=== PATIENT | female | born 2000 | race Caucasian/White ===

== ENCOUNTER → 2022-10-24 12:23 | Outpatient (CLI) | payer BC, SELFPAY ==
[2022-10-24 18:49] LABS: Alanine Aminotransferase 15 U/L (12-78); Albumin Level 4.4 g/dl (3.5-5.0); Albumin/Globulin Ratio 1.5 (1.1-1.8); Alkaline Phosphatase 76 U/L (38-126); Anion Gap 10.7 mEq/L (5-15); Aspartate Amino Transferase 23 U/L (14-36); Bilirubin,Total 0.6 mg/dl (0.2-1.3); Blood Urea Nitrogen 13 mg/dl (7-17); Calcium 9.2 mg/dl (8.4-10.2); Carbon Dioxide 29 mmol/L (22.0-30.0); Chloride 106 mmol/L (98-107); Estimated Glomerular Filt Rate 107 ml/min (>60); GFR (African American) 129 ML/MIN (>60); Globulin 2.9 g/dL (1.3-3.2); Glucose 79 mg/dl (74-100); Potassium 4.7 mmoL/L (3.5-5.1); Sodium 141 mmol/L (136-145); Total Protein,Serum 7.3 g/dl (6.3-8.2)
[2022-10-24 19:19] LABS: Thyroid Stimulating Hormone 1.72 uIU/mL (0.465-4.68)
[2022-10-24 19:37] LABS: Vitamin B12 606 pg/mL (239-931)
== END ==
LOC: LAB.DROPOF 10-25 08:23
PROVIDERS: PCP Family Medicine; Visit Provider Family Medicine
DX: F31.9 Bipolar disorder, unspecified (principal)
CPT/HCPCS: 80053; 82607; 84443

== ENCOUNTER 2025-03-16 19:06 | Emergency (ER) | payer BC, SELFPAY ==
[2025-03-16 19:23] VITALS: BP 134/74; PULSE 114; RESP 18; TEMP 36.6; O2SAT 100; BMI 25.6
--- NOTE | 2025-03-16 19:25 | CT_ITS ---
PROCEDURE INFORMATION: Exam: CT Abdomen And Pelvis With Contrast Exam date and time: 03/16/2025 8:13 PM Age: 24 years old Clinical indication: Abdominal pain; Additional info: Rlq abd pain TECHNIQUE: Imaging protocol: Computed tomography of the abdomen and pelvis with contrast. Radiation optimization: All CT scans at this facility use at least one of these dose optimization techniques: automated exposure control; mA and/or kV adjustment per patient size (includes targeted exams where dose is matched to clinical indication); or iterative reconstruction. Contrast material: ISOVUE; Contrast volume: 75 ml; Contrast route: IV; COMPARISON: No relevant prior studies available. FINDINGS: Lungs: Visualized lung bases are clear. Heart: Heart size normal. Esophagus: The visualized distal esophagus is largely contracted without gross abnormality. Liver: Normal contour. No mass lesions. No intrahepatic biliary ductal dilatation. Gallbladder and biliary ducts: The gallbladder is partially contracted but otherwise unremarkable. Nondilated common bile duct. Pancreas: Normal. No inflammatory changes or ductal dilation. Spleen: Normal. No splenomegaly. Adrenal glands: Normal. No adrenal mass. Kidneys and ureters: No acute abnormalities. No hydronephrosis or hydroureter. No urinary tract stones are identified. Stomach and bowel: The stomach is unremarkable. The small bowel is nondilated with no gross abnormality. There is a moderate amount of stool distributed in the mid and proximal colon suggesting possible constipation. Appendix: The appendix is not definitively identified. No secondary signs of appendicitis. Intraperitoneal space: No peritoneal free fluid or air. Vasculature: No acute vascular abnormalities. Lymph nodes: No adenopathy. Urinary bladder: Unremarkable as visualized. Reproductive: Uterus and left ovary are unremarkable. Right ovary contains a 1.9 cm peripherally enhancing involuting follicle, within physiologic range although possibly symptomatic if recently ruptured. Bones/joints: No acute osseous abnormalities. Moderate 26 degree leftward convexity lumbar scoliosis centered at L2. Soft tissues: No acute soft tissue abnormalities. IMPRESSION: 1. Partially collapsed 1.9 cm involuting follicle in the right ovary which is within physiologic range although potentially symptomatic if recently ruptured. No peritoneal fluid. 2. The appendix is not definitively identified, however there are no secondary signs of appendicitis. 3. There is a moderate amount of stool distributed in the mid and proximal colon suggesting possible constipation. 4. Additional nonemergent findings detailed above.
--- NOTE | 2025-03-16 19:26 | ED_ITS ---
Discharge Plan Disposition Patient Disposition: Home, Self-Care Prescriptions Prescriptions: New ondansetron 4 mg tablet,disintegrating 4 mg PO Q6H PRN (Reason: nausea and vomiting) Qty: 15 0RF polyethylene glycol 3350 [Miralax] 17 gram/dose powder 17 g PO DAILY PRN (Reason: constipation) Qty: 238 0RF No Action Vraylar 3 mg capsule See Rx Instructions .ROUTE .COMPLEX Qty: 30 2RF Dose Instruction: TAKE 1 CAPSULE BY MOUTH EVERY DAY FOR BIPOLAR DISORDER Rx Instructions: TAKE 1 CAPSULE BY MOUTH EVERY DAY FOR BIPOLAR DISORDER quetiapine 50 mg tablet See Rx Instructions .ROUTE .COMPLEX Qty: 90 4RF Dose Instruction: TAKE 1 TABLET BY MOUTH EVERY DAY Rx Instructions: TAKE 1 TABLET BY MOUTH EVERY DAY Referrals Follow up/Referrals: Damon Oscar [Primary Care Provider, Medical] - See instructions Activity Restrictions/Add. Instructions Additional Instructions/Restrictions: Use MiraLAX for constipation as prescribed. Use Zofran as needed for nausea and vomiting. Follow-up with primary care doctor. Please return to the ER with any new, concerning, worsening symptoms. Clinical Impressions Clinical Impression: Abdominal pain, right lower quadrant Constipation Qualifiers: Constipation type: unspecified constipation type Qualified Code(s): K59.00 - Constipation, unspecified Instructions Patient Instructions: DI for Acute Abdominal Pain Print Language Print Language: [place] Discharge ED Provider: Reece Johns General Adult HPI General Chief complaint: Abdominal Pain Stated complaint: Right side pain,abdominal pain with nausea Time Seen by Provider: 03/16/25 19:17 Mode of Arrival: Ambulatory Source of Information: Patient Limitations: No Limitations History of Present Illness HPI narrative: This is an otherwise healthy 24-year-old female who presents with right lower quadrant abdominal pain. States that it began on Thursday. It is intermittent and radiates up the right side of her abdomen and then across her epigastrium. Reports nausea. Denies vomiting. Denies urinary symptoms. Denies vaginal bleeding or discharge. States that she believes it may be constipation, has not had daily bowel movements and is having some trouble getting them out. Related Data Previous Rx's ?Medication ?Instructions ?Recorded cariprazine 3 mg capsule (Vraylar) See Rx Instructions .Route 01/13/23 .COMPLEX #30 caps quetiapine 50 mg tablet See Rx Instructions .Route 0 06/24/23 .COMPLEX #90 tabs ondansetron 4 mg disintegrating 4 mg PO Q6H PRN nausea and 03/16/25 tablet vomiting #15 tabs polyethylene glycol 3350 17 17 g PO DAILY PRN constipa tion 03/16/25 gram/dose oral powder (Miralax) #238 grams Allergies Allergy/AdvReac Type Severity Reaction Status Date / Time No Known Allergies Allergy Verified 11/07/22 11:27 [facility] Disclaimer: The information contained in this section may have been updated after the patient was seen, as this information can be updated by other users. Medical History Bipolar disorder Family History Mother Hyperlipidemia Social History Smoking Status: Never smoker alcohol intake: never substance use type: denies use current occupational status: employed Travel in the last 8 weeks?: None Have you lived/traveled outside [place] in past 30 days?: No Contact w/someone who lives/traveled outside [place] past 30 days?: No Exposure to someone with infectious disease in past 14 days?: No Do you have a fever (greater than 100.4 F or 38 C)?: No Have you tested positive for COVID-19?: No Exposed to someone with COVID-19 in past 14 days?: No Do you have a sore throat?: No Do you have a cough?: No Do you have any weakness?: No Do you have any diarrhea?: No Are you experiencing any unusual bleeding?: No Do you have any muscle aches/pain?: No Do you have any abdominal pain?: No Are you experiencing loss of taste or smell?: No ROS Obtained: Yes All systems reviewed & no additional complaints except as documented Physical Exam General General appearance: alert and in no apparent distress Head Head exam: atraumatic Eye Eye exam: Present normal appearance, PERRL and EOMI Neck Neck exam: Present normal inspection and full ROM Chest Chest inspection: Present symmetric chest wall rise Respiratory Respiratory exam: Present normal lung sounds bilaterally; Absent respiratory distress Cardiovascular Cardiovascular exam: Present regular rate and normal rhythm Abdominal Exam Abdominal exam: Present soft and tenderness (RLQ); Absent distention Extremities Exam Extremities exam: Present normal inspection Neurological Exam Neurological exam: Present alert and oriented X3 Psychiatric Psychiatric exam: Present normal affect and normal mood Skin Skin exam: Present warm and dry Medical Decision Making Medical Records Medical records reviewed: Yes I reviewed the patient's medical records. Screening: Per USPSTF and CDC recommendations, given the prevalence of disease in our region, it is our hospital?s policy to screen for HIV and viral Hepatitis for all patients aged 18 and over and those with ongoing risk factors. [place]arshal Inquiry Pt receiving controlled substance: No Vital Signs: 03/16/25 19:23 03/16/25 19:31 03/16/25 20:00 Temperature 97.9 F Temperature Source Oral Pulse Rate 97 H Pulse Rate [Left] 114 H Respiratory Rate 18 Blood Pressure 136/85 128/86 Blood Pressure [Right Arm] 134/74 Blood Pressure Mean [Right Arm] 94 Blood Pressure Source [Right Arm] Automatic Cuff Blood Pressure Position [Right Arm] Sitting 02 Sat by Pulse Oximetry 100 100 100 Oxygen Delivery Method Room Air Room Air Room Air Lab Data Lab Results 03/16/25 19:27: WBC 9.2, RBC 4.49, Hgb 14.0, Hct 40.9, MCV 91.1, MCH 31.2, MCHC 34.2, RDW 12.2, Plt Count 248, MPV 10.2, Neut % (Auto) 69.8, Lymph % (Auto) 22.3, Dixie % (Auto) 6.1, Eos % (Auto) 1.3, Baso % (Auto) 0.3, Neut # (Auto) 6.4, Lymph # (Auto) 2.1, Dixie # (Auto) 0.6, Eos # (Auto) 0.1, Baso # (Auto) 0.0, Sodium 138, Potassium 4.0, Chloride 105, Carbon Dioxide 28, Anion Gap 9.0, BUN 15, Creatinine 0.80, Estimated Creat Clear 100, Estimated GFR 90, Est GFR ( Amer) 109, Glucose 82, Calcium 9.7, Total Bilirubin 0.3, AST 27, ALT 20, Alkaline Phosphatase 58, Total Protein 7.1, Albumin 4.4, Globulin 2.7, Albumin/Globulin Ratio 1.6, Lipase 67, Serum HCG, Qual Negative, Urine Color Yellow, Urine Appearance Clear, Urine pH 7.5, Ur Specific [place] 1.015, Urine Protein Negative, Urine Glucose (UA) Negative, Urine Ketones Negative, Urine Blood Negative, Urine Nitrate Negative, Urine Bilirubin Negative, Urine Urobilinogen 0.2, Ur Leukocyte Esterase Negative, Urine RBC 3-5, Urine WBC 5-10, Ur Squamous Epith Cells 3-5, Amorphous Sediment 1+, Urine Bacteria 3+ 03/16/25 19:27 03/16/25 19:27 Orders (Tests/Meds): ED MEDICATIONS Discontinued Medications Generic Name Dose Route Start Last Admin Trade Name Freq PRN Reason Stop Dose Admin Lactated Ringer's 1,000 mls @ 999 mls/hr 03/16/25 19:25 03/16/25 19:34 Lactated Ringer's 1000 Ml Bag IV 03/16/25 20:25 999 mls/hr .Q1H1M ONE Administration Iopamidol 75 ml 03/16/25 20:13 03/16/25 20:13 Iopamidol-370 (76%);100ml Bottle IV 03/16/25 20:14 75 ml ONCE ONE Administration Ondansetron HCl 4 mg 03/16/25 19:25 03/16/25 19:35 Ondansetron 4mg/2ml Vial IV 03/16/25 19:26 4 mg ONCE ONE Administration Sodium Chloride 10 ml 03/16/25 20:13 03/16/25 20:13 Sodium Chloride 0.9% 10ml Syr (Rad Only) IV 03/16/25 20:14 10 ml ONCE ONE Administration ORDERS Category Date Time Status CT abdomen pelvis w con Stat Cat Scan 03/16/25 19:25 Completed CBC w/Auto Diff [Complete Blood Count Auto Diff] Stat Lab 03/16/25 19:27 Completed CMP [Comprehensive Metabolic Panel] Stat Lab 03/16/25 19:27 Completed HCG Qualitative, Serum Stat Lab 03/16/25 19:27 Completed Lipase Stat Lab 03/16/25 19:27 Completed Urinalysis and Microscopic Stat Lab 03/16/25 19:27 Completed Urine Culture Stat Micro 03/16/25 19:27 Received Medical Decision Narrative: In summary, this 24-year-old female presents to the emergency department today with right lower quadrant abdominal pain. On initial evaluation patient is afebrile, he medically stable, nontoxic-appearing. Differential diagnosis includes but is not limited to appendicitis, ovarian torsion, UTI, constipation. Based on these concerns, I ordered CBC, CMP, lipase, urinalysis, CT abdomen pelvis with IV contrast. Patient received 1 L of lactated Ringer's and Zofran for treatment. Labs personally reviewed demonstrate unremarkable CBC, CMP, negative test, no UTI. CT imaging personally interpreted demonstrates findings consistent with constipation. Radiologist notes that appendix was not able to be visualized however there were no secondary signs. Also had a follicle on her right ovary. Likely physiologic.. On reassessment patient in no acute distress with no significant amount of abdominal pain. Was very well-appearing. Appropriate for discharge with treatment for constipation. Ultimately discharged in stable condition. Critical Care Critical Care Time Critical Care Time: No
[2025-03-16 19:31] VITALS: BP 136/85; O2SAT 100
[2025-03-16] MEDS: LACTATED RINGERS 1000ML 1,000 ML 999 ML IV (19:34)
[2025-03-16] MEDS: ONDANSETRON 4MG/2ML VIAL 4 MG IV (19:35)
[2025-03-16 19:36] LABS: Microscopic, Urine URINE MICROSCOPIC (MICROSCOPIC)
[2025-03-16 19:42] LABS: Appearance,Urine CLEAR (Clear); Bilirubin,Urine Negative (Negative); Blood, Urine Negative (Negative); Color,Urine YELLOW (Yellow); Glucose,Urine (UA) Negative (Negative); Ketones,Urine Negative (Negative); Leukocyte Esterase,Urine Negative (Negative); Nitrate,Urine Negative (Negative); PH,Urine 7.5 (5.0-8.5); Protein,Urine Negative (Negative); Specific Gravity, Urine 1.015 (1.005-1.030); Urobilinogen,Urine 0.2 EU/dl (0.2)
[2025-03-16 19:48] LABS: Albumin Level 4.4 g/dl (3.5-5.0); Chloride 105 mmol/L (98-107); Sodium 138 mmol/L (136-145)
[2025-03-16 19:51] LABS: Alanine Aminotransferase 20 U/L (12-78); Albumin/Globulin Ratio 1.6 (1.1-1.8); Alkaline Phosphatase 58 U/L (38-126); Aspartate Amino Transferase 27 U/L (14-36); Bilirubin,Total 0.3 mg/dl (0.2-1.3); Blood Urea Nitrogen 15 mg/dl (7-17); Calcium 9.7 mg/dl (8.4-10.2); Carbon Dioxide 28 mmol/L (22.0-30.0); Creatinine Clearance Estimated 100 mL/min (50-200); Estimated Glomerular Filt Rate 90 ml/min (>60); GFR (African American) 109 ML/MIN (>60); Globulin 2.7 g/dL (1.3-3.2); Glucose 82 mg/dl (74-100); Lipase 67 U/L (23-300); Total Protein,Serum 7.1 g/dl (6.3-8.2)
[2025-03-16 19:57] LABS: Basophils % 0.3 % (0.1-2.0); Eosinophils # 0.1 Kmm3 (0.0-0.4); Eosinophils % 1.3 % (0.1-12.0); Hematocrit 40.9 % (37.0-47.0); Immature Granulocytes # 0.02 10^3uL; Immature Granulocytes % 0.2 %; Lymphocytes # 2.1 K/mm3 (0.7-4.5); Lymphocytes % 22.3 % (10-50); Mean Corpuscular HGB Conc 34.2 g/dL (31.8-35.4); Mean Corpuscular Hemoglobin 31.2 pg (27.0-31.2); Mean Corpuscular Volume 91.1 fl (81-99); Mean Platelet Volume 10.2 fl (7.4-10.4); Monocytes # 0.6 K/mm3 (0.1-1.0); Monocytes % 6.1 % (1.7-9.3); Neutrophils # 6.4 K/mm3 (1.8-7.8); Neutrophils % 69.8 % (37.0-80.0); Nucleated Red Blood Cells # 0 10^3/uL; Nucleated Red Blood Cells % 0 %; Platelet Count 248 K/mm3 (142-424); Red Blood Count 4.49 M/mm3 (4.20-5.40); Red Cell Distribution Width 12.2 % (11.5-17.5); Red Cell Distribution Width-SD 40.8 fL; White Blood Count 9.2 K/mm3 (4.8-10.8)
[2025-03-16 20:00] VITALS: BP 128/86; PULSE 97; O2SAT 100
[2025-03-16 20:01] LABS: HCG Qualitative, Serum Negative (Negative)
[2025-03-16] MEDS: IOPAMIDOL-370 (76%);100ML BOTTLE 75 ML IV (20:13)
[2025-03-16] MEDS: SODIUM CHLORIDE 0.9% 10ML SYR (RAD ONLY) 10 ML IV (20:13)
[2025-03-16 20:25] LABS: Amorphous Sediment,Urine 1+ /lpf; Bacteria,Urine 3+ /lpf
[2025-03-16 21:04] VITALS: BP 141/85; PULSE 78; RESP 18; TEMP 36.7; O2SAT 100
== END 2025-03-16 21:06 | disposition home or self-care (01) ==
PROVIDERS: Emergency Provider Student in an Organized Health Care Education/Training Program; PCP Pediatrics
DX: R10.31 Right lower quadrant pain (principal); K59.00 Constipation, unspecified
CPT/HCPCS: 74177; 80053; 81001; 83690; 84703; 85025; 87086; 96361; 96374; 99285; J2405; J7120; Q9967